=== PATIENT | female | born 1980 | race Two or more races ===

== ENCOUNTER 2021-08-22 15:03 | Emergency (ER) | payer SELFPAY ==
[~2021-08-22] VITALS: Ht 162.6 cm; Wt 70.3 kg
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
[2021-08-22 15:54] LABS: BILIRUBIN,URINE Negative (NEGATIVE); COLOR,URINE YELLOW (YELLOW); LEUKOCYTE ESTERASE ,URINE Negative (NEGATIVE); NITRITE, URINE Negative (NEGATIVE); PH,URINE 5.5 (5.0-8.0); PROTEIN,URINE 30 mg/dl (NEGATIVE); UGLUCOSE Negative (NEGATIVE); UROBILINOGEN,URINE 0.2 EU/dL (0.2)
[2021-08-22 15:54] LABS: BASOPHILS % (AUTO) 0.6 % (0.0-2.0); HEMATOCRIT 38 % (33-45); HEMOGLOBIN 12.6 g/dL (11.5-14.8); LYMPHOCYTES # (AUTO) 1.7 K/uL (0.8-4.8); MEAN CORPUSCULAR HGB CONC 33 g/dl (31.0-36.0); MEAN CORPUSCULAR VOLUME 86 fL (82-100); MONOCYTES # (AUTO) 0.7 K/uL (0.1-1.30); MONOCYTES % (AUTO) 8.8 % (2.0-12.0); NEUTROPHILS # (AUTO) 5.2 K/uL (1.8-8.9); NEUTROPHILS % (AUTO) 67.6 % (43.0-81.0); PLATELET COUNT (AUTO) 268 K/uL (150-450); RED BLOOD CELL COUNT(AUTO) 4.39 MIL/uL (4.0-5.2); WHITE BLOOD COUNT (AUTO) 7.7 K/uL (4.3-11.0)
[2021-08-22 16:03] LABS: BACTERIA,URINE Many /HPF (None Seen); RBC,URINE 0-2 /HPF (0-2)
[2021-08-22 16:03] LABS: CALCIUM, SERUM 8.7 mg/dL (8.5-10.1); CREATININE 0.9 mg/dL (0.6-1.3); POTASSIUM 3.4 mmol/L (3.5-5.1)
[2021-08-22 16:04] LABS: SQUAMOUS EPITHELIAL CELL,UR Few /HPF (None Seen)
[2021-08-22] MEDS ORDERED: IV NS 0.9% 250 ML IV ONE (16:04)
[2021-08-22] MEDS ORDERED: IOHEXOL-300 100 ML VIAL IV ONE (16:04)
[2021-08-22] MEDS: TRAMADOL HCL 50 MG TABLET PO ONE (16:30)
[2021-08-22] MEDS ORDERED: TRAMADOL HCL 50 MG TABLET ONE (16:36)
[2021-08-22] MEDS ORDERED: IBUP-1955 PO (16:56)
[2021-08-22] MEDS ORDERED: BACI30OI9 TP (16:56)
[2021-08-22 17:02] VITALS: BP 130/85
== END 2021-08-22 17:07 | disposition home or self-care (01) ==
LOC: ER 15:07
DX: S50.812A Abrasion of left forearm, initial encounter (principal); S50.811A Abrasion of right forearm, initial encounter; Z79.899 Other long term (current) drug therapy; V49.49XA Driver injured in collision with other motor vehicles in traffic accident, initial encounter; Y93.89 Activity, other specified; Y92.488 Other paved roadways as the place of occurrence of the external cause; Y99.8 Other external cause status
CPT/HCPCS: 36415; 73090; 74177; 80048; 81001; 84703; 85025; 87086; 99285; J7050; Q9967